=== PATIENT | female | born 1930 | race Caucasian/White ===

== ENCOUNTER 2016-06-17 13:24 | Inpatient (IN) | payer MEDICARE ==
[~2016-06-17] VITALS: Ht 152.4 cm; Wt 44.1 kg
[~2016-06-17 13:24] MED LIST: ACET-171 PO; ALBU18HF INH; ASCO-294 PO; ASPI-973 PO; ATOR40TA69 PO; CALC-78 PO; CAPS42.56 TOP; CHOL10008 PO; CYA1000I IM; IPRA3AMP NEB; LISI-571 PO; METO-272 PO; SPIR25TA PO; TORS20TA PO
[2016-06-17 13:51] VITALS: BP 124/88; PULSE 128; RESP 45; O2SAT 96
--- NOTE | 2016-06-17 13:58 | ED.REPORT ---
HPI-General Illness Date of Service Jun 17, 2016 ED Provider: Thomas Huntley MD An 86 year old female with an extensive medical history including atrial fibrillation, COPD, CVA, carotid artery stenosis, hypertension, MT x2, PVD, CHF , and acute kidney injury presents to the ED via EMS from [place] accompanied by her son with altered level of consciousness onset earlier today. The patient' s son went to pick her up for an appointment and found that she was slumped in her chair with decreased LOC. He was able to take her to her collar fuser, where EMS was called. The patient reports shortness of breath and chills currently. She denies pain or other complaints. Her son reports that she was feeling nauseous just prior to arrival and was having episodes of hematochezia recently. The patient is a poor historian. She was recently discharged from the hospital (06/02/16) after a week stay for new-onset atrial fibrillation and CHF exacerbation with respiratory failure. Nursing Notes Stated Complaint: ALTERED LOC Chief Complaint: General Complaint Nursing Notes Reviewed: Yes Allergies: Coded Allergies: phenobarbital (Verified Allergy, Severe, RASH, 05/26/16) Sulfa (Sulfonamide Antibiotics) (Verified Allergy, Unknown, 05/26/16) cortisone (Verified Allergy, Unknown, 05/26/16) Scheduled Ascorbate Calcium (Vitamin C) 500 Mg Tablet 500 MG PO DAILY Aspirin (Aspirin) 81 Mg Tablet 81 MG PO DAILY Atorvastatin Calcium (Atorvastatin Calcium) 40 Mg Tablet 40 MG PO HS Calcium Carbonate/Vitamin D3 (Calcium 500 + Vit D Caplet) 1 Each Tablet 1 EACH PO DAILY Capsaicin/Menthol (Capzasin Quick Relief Gel) 42.5 Gm Gel.w.appl 1 APPLIC TOP QAM apply to affected areas of arthritis Cholecalciferol (Vitamin D3) (Vitamin D3) 1,000 Unit Tab.chew 1,000 UNIT PO DAILY Cyanocobalamin (Cyanocobalamin Injection) 1,000 Mcg/1 Ml Vial 1,000 MCG IM Monthly Ipratropium/Albuterol Sulfate (Iprat-Albut 0.5-3(2.5) mg/3 mL Inhalant Soln) 3 Ml Ampul.neb 3 ML NEB BID Lisinopril (Lisinopril) 5 Mg Tablet 1.25 MG PO DAILY Metoprolol Succinate ER (Metoprolol Succinate ER) 50 Mg Tab.er.24h 100 MG PO BID Spironolactone (Aldactone) 25 Mg Tablet 12.5 MG PO DAILY Torsemide (Demadex) 20 Mg Tablet 20 MG PO DAILY Scheduled PRN Acetaminophen (Acetaminophen) 500 Mg Tablet 500 MG PO BID PRN PRN For Pain Albuterol Sulfate (Ventolin HFA Inhaler) 200 Puff/18 Gm Inhaler 2 PUFF INH q4- 6h PRN PRN For Wheezing Ipratropium/Albuterol Sulfate (Iprat-Albut 0.5-3(2.5) mg/3 mL Inhalant Soln) 3 Ml Ampul.neb 3 ML NEB Q4H PRN PRN For Shortness of Breath General Time Seen by MD: 13:56 Chief Complaint Altered mental status Hx Obtained From: Patient, Son, EMS Arrived By: Ambulance Sudden in Onset?: No Onset Occurred: Onset unknown Symptom Duration: Since onset Severity: Current: No pain currently Severity: Maximum: No pain Associated with: Denies: Fever Pertinent Negative: Relieved by nothing Context Related History: Reports COPD, Reports Coronary artery disease Recent Healthcare: Recent hospitalization Similar Sx Previous: Yes Past Medical History Past Medical History Notes: COPD, LBBB, Past Medical History Vertigo Prolapse of vaginal vault after hysterectomy LBBB COPD Arthritis shoulders CVA Coronary disease Carotid artery stenosis moderate Hypertension MT x2 Pulmonary fibrosis PVD L subclavia occlusion Stable chronic angina Diastolic CHF with last EF 30-40% 05/2016 Hx. respiratory failure Acute kidney injury Alcohol withdrawal Reports: Atrial fibrillation Past Surgical History Hemmorhoid surgery Reports: , Hysterectomy Smoking History Former Smoker Ambulatory Status Independent Review of Systems Full Review of Systems Constitutional: Reports: Chills, Denies: Fever Respiratory: Reports: Shortness of breath Cardiovascular: Denies: Chest pain GI: Reports: Hematochezia, Nausea, Denies: Abdominal pain Female: Denies: Flank pain Musculoskeletal: Denies: Back pain, Extremity pain Neurologic: Reports: Change LOC Complete sys rev & neg: except as marked. Physical Exam H and L? Vital Signs Vital Signs Date Time Temp Pulse Resp B/P Pulse Ox O2 Delivery O2 Flow Rate FiO2 06/17/16 13:51 35.8 128 45 124/88 96 Nasal Cannula 2 Initial VS: Reviewed Head / Eyes: Atraumatic, Normocephalic ENT: Conjunctiva normal, No scleral icterus Respiratory: Breath sounds normal, Clear to auscultation, No respiratory distress Cardiovascular: Regular rate & rhythm, Heart sounds normal Skin: Warm, Dry Psychiatric: Mood/affect normal, Behavior normal, Normal thought content General/Constitutional: Awake, Alert Abdomen: Soft, No guarding Tenderness/Guarding/Rebound: Positive: Tender diffuse (Mild) Lower Extremity / Pelvis / MS: Inspection NL, No edema Rectum / Perineum: No gross blood No visible stool in rectum Residue on glove is Guaiac positive Interpretation & Diagnostics URINE DIPSTICK 1.000 sp gravity 5 pH trace leukocytes 5 protein Otherwise negative Lab Results Interpretation Result Diagram: 06/17/16 1433 06/17/16 1433 Test 06/17/16 14:18 06/17/16 14:33 Urine Color Yellow (YELLOW) Urine Appearance Hazy (CLEAR,HAZY) Urine pH 5.5 (5.0-8.0) Urine Specific Mobile 1.025 (1.003-1.035) Urine Protein 100mg/dL (NEG,TRACE) Urine Glucose (UA) Negativemg/dL (NEGATIVE) Urine Ketones Negativemg/dL (NEGATIVE) Urine Occult Blood Negative (NEGATIVE) Urine Nitrite Negative (NEGATIVE) Urine Bilirubin Negative (NEGATIVE) Urine Urobilinogen Normalmg/dL (NORMAL) Urine Leukocyte Esterase Trace (NEGATIVE) Urine RBC 0-2/hpf (0-2) Urine WBC 11-50/hpf (0-5) Urine Epithelial Cells Moderate/hpf (NONE-MOD) Urine Crystals None seen (NONE SEEN) Urine Bacteria Few/hpf (NONE-FEW) Urine Hyaline Casts None/lpf (NONE) Urine Granular Casts None seen (NONE SEEN) Urine Waxy Casts None seen (NONE SEEN) Urine Red Blood Cell Casts None seen (NONE SEEN) Urine White Blood Cell Casts None seen (NONE SEEN) Urine Mucus None seen (None Seen) Urine Trichomonas None seen (NONE SEEN) Urine Yeast None (NONE SEEN) Urinalysis Comment None Urine Culture Reflexed Indicated White Blood Count 13.5th/mm3 (3.8-10.1) Red Blood Count 3.68mil/mm3 (3.90-5.20) Hemoglobin 10.6g/dL (12.0-15.6) Hematocrit 33.2% (35.0-46.0) Mean Corpuscular Volume 90.2fL (81-100) Mean Corpuscular Hemoglobin 28.8pg (27.0-35.0) Mean Corpuscular Hemoglobin Concent 31.9% (32.0-37.0) Red Cell Distribution Width 14.1% (12.3-15.4) Platelet Count 478bil/L (150-400) Neutrophils (%) (Auto) 67.9% (40-74) Lymphocytes (%) (Auto) 15.5% (14-46) Monocytes (%) (Auto) 15.8% (4-12) Eosinophils (%) (Auto) 0.1% (0-5) Basophils (%) (Auto) 0.3% (0-3) Prothrombin Time 12.8sec (8.1-12.5) Prothromb Time International Ratio 1.19ratio Sodium Level 134mEq/L (134-144) Potassium Level 5.1mEq/L (3.5-5.2) Chloride Level 91mEq/L (97-108) Carbon Dioxide Level 14mmol/L (18-29) Blood Urea Nitrogen 39mg/dL (8-27) Creatinine 2.00mg/dL (0.57-1.00) Estimat Glomerular Filtration Rate 34mL/min (>59) Glucose Level 123mg/dL (60-99) Lactic Acid Level 7.7mmol/L (0.4-2.0) Calcium Level 9.5mg/dL (8.5-10.1) Magnesium Level 2.5mg/dL (1.6-2.6) Total Bilirubin 0.7mg/dL (0.0-1.2) Aspartate Amino Transf (AST/SGOT) 103U/L (0-50) Alanine Aminotransferase (ALT/SGPT) 92U/L (0-32) Alkaline Phosphatase 88U/L (25-165) Troponin T < 0.010ug/L (0.0-0.011) Pro-B-Type Natriuretic Peptide 43645su/mL (0-738) Total Protein 7.5g/dL (6.4-8.4) Albumin 3.9g/dL (3.4-5.0) Lipase 97U/L (13-60) ECG Interpretation ECG Interpretation: Atrial fibrillation rate 117 Left bundle branch block Time: 15:02 Interpreted by: ED physician X-Ray Chest Interpretation Chest Xray Interpretation: IMPRESSION: No acute cardiopulmonary disease process. Dictated by: Nidhi Medley MD, PhD on 06/17/2016 at 14:54 View: Portable, 1 view Interpretation / Wet Read by: Interpret - Radiologist CT Abd / Pelvis Interpretation IMPRESSION: The study is somewhat limited by absence of oral and intravenous contrast. With this qualification the lungs demonstrate a pattern suggestive of a combination of emphysema and mild congestive heart failure or pulmonary edema from other etiologies such as ARDS. Throughout the abdomen and pelvis no abscess is found. There is no sign of diverticulitis. There is, however, prominent mural thickening of the gallbladder without internal visualized calcifications. Anasarca can produce gallbladder wall thickening but it may be warranted to obtain dedicated gallbladder ultrasound given the concentric mural thickening of the wall at 1.2 cm. Small bilateral pleural effusions, to the degree that access for ultrasound-guided aspiration would not be possible. Dictated by: Mike Barlow M.D. on 06/17/2016 at 17:52 Study type: Abdominal CT no contrast Interpretation / Wet Read by: Interpret - Radiologist Re-Eval/Medical Decision Med Decision/Clinical Course No obvious source for the infection is yet identified. We have covered her with broad-spectrum antibiotics consistent with GI source infection. Currently we are pursuing ultrasound for more definitive evaluation of the gallbladder given the CT findings. Source of Hx: Old records Time of Eval: 17:55 Patient Status: Condition improved Re-Evaluation/Progress Note: Discussed with patient and her son CT and lab results, diagnosis, and plan for admit. Patient and her son agree with plan for care and all questions were addressed. Consultation : Referral / Consult Name: Jessy Cuello MD Consulted With: Hospitalist Call Returned at: 17:50 [employer]: Agrees with eval, Agrees with plan, Accepts admit Note: I informed Dr. Cuello regarding the hematochezia and the CT results. Will order ultrasound based on CT results. Counseled Regarding: Diagnosis, Lab results, Need for admission Discharge & Departure Primary Impression: Sepsis Sepsis type: sepsis due to unspecified organism Qualified Code: A41.9 - Sepsis, unspecified organism Disposition: ADMITTED TO HOSPITAL Discharge Condition All VS Reviewed: Yes Condition: Stable Referrals: Latricia Hickey MD (PCP) Crit Care Except Billable Proc Time Spent: 30-74 minutes Services Performed: Patient management by me, Time spent at bedside, Reviewing test results, Reviewing imaging, Discussing patient care, Documentation in record, Time with fam/surrogate Scribe Attestation Portions of this note were transcribed by Rachell Romero. I, Dr. Huntley, personally performed the history, physical exam, and medical decision-making; I reviewed and confirmed the accuracy of the information in the transcribed note. Signed by: Светлана Mcclellan, 06/17/2016, 17:59 copies to: Latricia Hickey MD, Kirk H MD Jun 17, 2016 13:58 RACHELL ROMERO Jun 17, 2016 14:15
[2016-06-17] MEDS ORDERED: 0.9% Sodium Chloride 1,000 ML IV ONE (14:13)
[2016-06-17 14:32] LABS: APPEARANCE,URINE HAZY (CLEAR,HAZY); COLOR,URINE YELLOW (YELLOW)
[2016-06-17 14:33] LABS: OCCULT BLOOD,URINE NEGATIVE (NEGATIVE); PH,URINE 5.5 (5.0-8.0); UROBILINOGEN,URINE NORMAL (NORMAL)
--- NOTE | 2016-06-17 14:55 | DRSVH ---
PROCEDURE: X-RAY CHEST ONE VIEW, PORTABLE ([id number]) INDICATIONS: altered LOC TECHNIQUE: One view of the chest was acquired. COMPARISON: [facility], CR, XR CHEST 1VW (PORTABLE), 05/27/2016, 15:49. FINDINGS: Surgical changes and devices: None. Lungs and pleura: No pleural effusions or pneumothorax. Chronic interstitial lung changes are stable compared to prior examination. Mediastinum: Mediastinal contours appear normal. Heart size is normal. Bones and chest wall: No suspicious bony lesions. Overlying soft tissues appear unremarkable. IMPRESSION: No acute cardiopulmonary disease process. Dictated by: Nidhi Medley MD, PhD on 06/17/2016 at 14:54 Approved by: Nidhi Medley MD, PhD on 06/17/2016 at 14:54
[2016-06-17 14:58] LABS: BASOPHILS % (AUTO) 0.3 % (0-3); EOSINOPHILS % (AUTO) 0.1 % (0-5); MONOCYTES % (AUTO) 15.8 % (4-12); Mean Corpuscular Hemoglobin 28.8 pg (27.0-35.0); Mean Corpuscular Volume 90.2 fL (81-100); NEUTROPHILS % (AUTO) 67.9 % (40-74); Platelet Count 478 bil/L (150-400)
[2016-06-17 15:04] LABS: INR 1.19 ratio
[2016-06-17 15:24] LABS: Lipase 97 U/L (13-60); Magnesium 2.5 mg/dL (1.6-2.6)
[2016-06-17 15:30] LABS: TROPONIN T < 0.010 ug/L (0.0-0.011)
[2016-06-17] MEDS ORDERED: metroNIDAZOLE Inj 500 MG in IV Premix 1 EACH IV ONE (15:45)
[2016-06-17] MEDS ORDERED: Piperacillin-Tazo 3.375 Gm Inj 3.375 GM in Dextrose 5% Minibag Plus 50 ML IV ONE (15:45)
[2016-06-17] MEDS ORDERED: cefTRIAXone Inj 2,000 MG in IV Premix 1 EACH IV ONE (17:20)
--- NOTE | 2016-06-17 17:54 | DRSVH ---
PROCEDURE: CT ABDOMEN AND PELVIS WITHOUT CONTRAST ([id number]) INDICATIONS: sepsis, unknown source TECHNIQUE: Noncontrast 5 mm thick sections acquired from the diaphragms to the symphysis. 5 mm coronal and sagi ttal reformats were then performed. For radiation dose reduction, the following was used: automated exposure control, adjustment of mA and/or kV according to patient size. COMPARISON: [facility], CT, ABD/PELVIS W/CON (PN), 10/13/2014, 12:37. FINDINGS: Image quality: Excellent. ABDOMEN: Lung bases: Lung bases are abnormal with a combination of what appears to be COPD and pulmonary ariane a with a small pleural effusion bilaterally slightly greater on the left than the right. Heart size is mildly enlarged. Solid organs: Liver and spleen are normal in size. Gallbladder is abnormal with what appears to be concentric mural thickening but no internal calcifications can be seen. Pancreas is normal in contou rs. No adrenal nodules. Kidneys are normal in size, without hydronephrosis or nephrolithiasis. Peritoneum and bowel: Unenhanced bowel loops demonstrate normal wall thickness and caliber. No free fluid or air. Nodes and vessels: No retroperitoneal or mesenteric adenopathy by size criteria. Aorta and inferior vena cava are normal in caliber. Miscellaneous: No ventral hernias. PELVIS: Genitourinary: Bladder wall thickness is normal. Miscellaneous: No inguinal hernias or adenopathy. Prominent diverticulosis without acute diverticul itis Bones: No suspicious bony lesions. No vertebral body compression fractures. IMPRESSION: The study is somewhat limited by absence of oral and intravenous contrast. With this qu alification the lungs demonstrate a pattern suggestive of a combination of emphysema and mild congest kirk heart failure or pulmonary edema from other etiologies such as ARDS. Throughout the abdomen and pelvis no abscess is found. There is no sign of diverticulitis. There is , however, prominent mural thickening of the gallbladder without internal visualized calcifications. Anasarca can produce gallbladder wall thickening but it may be warranted to obtain dedicated gallbla dder ultrasound given the concentric mural thickening of the wall at 1.2 cm. Small bilateral pleural effusions, to the degree that access for ultrasound-guided aspiration would n ot be possible. Dictated by: Mike Barlow M.D. on 06/17/2016 at 17:52 Approved by: Mike Barlow M.D. on 06/17/2016 at 17:52
[2016-06-17] MEDS ORDERED: Ondansetron 2 mg/mL 2 mL Inj IVPUSH PRN (18:05)
[2016-06-17] MEDS ORDERED: Alum-Mag Hydrox-Simeth 30 mL Suspension PO PRN (18:05)
--- NOTE | 2016-06-17 18:17 | NUR ---
Admit nurse: Allergy sticker in place. Pt poor historian, admission completed by medical record and family interview. Med rec not completed at this time, request for med list from [facility] being faxed.
[2016-06-17 20:00] VITALS: BP 112/78; PULSE 117; RESP 32; O2SAT 98
--- NOTE | 2016-06-17 20:10 | DRSVH ---
PROCEDURE: US ABDOMEN, LIMITED ([id number]) INDICATIONS: ABNORMAL GB ON CT-GALLBLADDER ONLY US TECHNIQUE: Real-time focused scanning was performed of the abdomen, with image documentation. COMPARISON: CT scanning from earlier this evening, noncontrast study, but identified what appears to be prominent mural thickening involving the gallbladder in a patient with sepsis syndrome. FINDINGS: The study is limited at clinicians request, and it documents presence of a prominently con centrically thickened edematous gallbladder wall measuring up to 10 mm in thickness, with a tendernes s during sonographic palpation. Note is made of a normal appearing common bile duct diameter of 4.8 mm. IMPRESSION: A confirmation of prominently thickened gallbladder wall measuring up to 10 mm in thickn ess with tenderness during sonographic palpation. Cholecystitis is the presumed cause. No gallstone s are seen within the gallbladder lumen, however. No biliary distention is associated. Surgical con sultation likely is warranted. Dictated by: Mike Barlow M.D. on 06/17/2016 at 20:08 Approved by: Mike Barlow M.D. on 06/17/2016 at 20:08
[2016-06-17 20:51] VITALS: BP 118/80; PULSE 114; RESP 20; O2SAT 97
[2016-06-17 21:16] VITALS: PULSE 94; RESP 32; O2SAT 89
--- NOTE | 2016-06-17 22:00 | NUR ---
Afib Pt remains in Afib but rate increasing to 120-130. made aware, orders received.
[2016-06-17 22:30] VITALS: PULSE 120
--- NOTE | 2016-06-17 22:30 | NUR ---
Admit Pt arrived on unit at 2009. Pt A&Ox3, denies pain. Pt transferred from [facility] to bed using 2 person assist. Family at bedside. VSS, pulse oximeter does not read well, pt has cold, pale hands. Oximeter changed to ear probe, still ineffective. Probe changed to finger after nail croatian removed. Good readings found at 94% on 7L oxymask, but ineffective again after a few minutes. CPOx removed, spot checks to be done. Pt in Afib 112-117. See flowsheet for full assessment.
[2016-06-17] MEDS ORDERED: 0.9% Sodium Chloride 1,000 ML ONE (23:03)
[2016-06-17] MEDS ORDERED: ASCO250T7 PO (23:52)
[2016-06-18] MEDS ORDERED: 0.9% Sodium Chloride 1,000 ML IV SCH (00:05)
[2016-06-18] MEDS ORDERED: Polyethylene Glycol (PEG) 17 Gm Powder PO PRN (00:20)
[2016-06-18] MEDS ORDERED: Albuterol-Ipratropium 3 mL Inhalation Solution NEB PRN (00:20)
[2016-06-18] MEDS ORDERED: Alum-Mag Hydrox-Simeth 30 mL Suspension PO PRN (00:20)
[2016-06-18] MEDS ORDERED: MeTOProlol XL 50 mg ER24 Tablet PO SCH (00:28)
[2016-06-18] MEDS ORDERED: Albuterol 2.5 mg/3 mL Inhalation Solution NEB PRN (00:56)
[2016-06-18 01:00] VITALS: BP 85/49; PULSE 116; RESP 27; O2SAT 97
[2016-06-18] MEDS ORDERED: EPINEPHrine 0.1 mg/mL 10 mL Syringe ONE (01:37)
--- NOTE | 2016-06-18 02:16 | NUR ---
Update Pt up to commode with 1PA at 0100. Pt has good mobility, needing only SBA-1PA. Pt back into bed. RN into room to administer ordered metoprolol dose, pt agreeable. Pt helped to sit up in bed, pt opened mouth to take pills, RN dropped pills into mouth using med cup. Pt suddenly became non responsive, eyes fixed and non reactive. Pt nonreactive to voice, name called, or sternal rub. RN calls in scenery builder. Pills removed from mouth, blood pressure attempted, pt begins agonal breathing, going pulseless. Code Blue called. CPR and assistive respirations started. See code sheet and Dr Ceron's note.
--- NOTE | 2016-06-18 07:38 | PCM.DC.MEX ---
Discharge Summary Date of Service Jun 18, 2016 Dates of Hospitalization Date of Hospital Admission Jun 17, 2016 at 19:15 Date of Expiration: Jun 18, 2016 Time of Expiration: 02:00 Providers: Admitting Physician: Jessy Cuello MD Primary Care Physician: Latricia Hickey MD Attending Physician: Jessy Cuello MD Diagnosis at Time of Acute Cholecystitis Cardiomyopathy/congestive heart failure/atrial fibrillation Elevated Lactic Acid level Procedures XRay, CTs & MRIs CT ABDOMEN AND PELVIS WITHOUT CONTRAST [place] [id number] INDICATIONS: sepsis, unknown source TECHNIQUE: Noncontrast 5 mm thick sections acquired from the diaphragms to the symphysis. 5 mm coronal and sagittal reformats were then performed. For radiation dose reduction, the following was used: automated exposure control, adjustment of mA and/or kV according to patient size. COMPARISON: [facility], CT, ABD/PELVIS W/CON [place] [place] 10/13/2014, 12: 37. FINDINGS: Image quality: Excellent. ABDOMEN: Lung bases: Lung bases are abnormal with a combination of what appears to be COPD and pulmonary edema with a small pleural effusion bilaterally slightly greater on the left than the right. Heart size is mildly enlarged. Solid organs: Liver and spleen are normal in size. Gallbladder is abnormal with what appears to be concentric mural thickening but no internal calcifications can be seen. Pancreas is normal in contours. No adrenal nodules. Kidneys are normal in size, without hydronephrosis or nephrolithiasis. Peritoneum and bowel: Unenhanced bowel loops demonstrate normal wall thickness and caliber. No free fluid or air. Nodes and vessels: No retroperitoneal or mesenteric adenopathy by size criteria. Aorta and inferior vena cava are normal in caliber. Miscellaneous: No ventral hernias. PELVIS: Genitourinary: Bladder wall thickness is normal. Miscellaneous: No inguinal hernias or adenopathy. Prominent diverticulosis without acute diverticulitis Bones: No suspicious bony lesions. No vertebral body compression fractures. IMPRESSION: The study is somewhat limited by absence of oral and intravenous contrast. With this qualification the lungs demonstrate a pattern suggestive of a combination of emphysema and mild congestive heart failure or pulmonary edema from other etiologies such as ARDS. Throughout the abdomen and pelvis no abscess is found. There is no sign of diverticulitis. There is, however, prominent mural thickening of the gallbladder without internal visualized calcifications. Anasarca can produce gallbladder wall thickening but it may be warranted to obtain dedicated gallbladder ultrasound given the concentric mural thickening of the wall at 1.2 cm. Small bilateral pleural effusions, to the degree that access for ultrasound- guided aspiration would not be possible. X-RAY CHEST ONE VIEW, PORTABLE ([id number]) INDICATIONS: altered LOC TECHNIQUE: One view of the chest was acquired. COMPARISON: [facility], CR, XR CHEST 1VW (PORTABLE), 05/27/2016, 15 :49. FINDINGS: Surgical changes and devices: None. Lungs and pleura: No pleural effusions or pneumothorax. Chronic interstitial lung changes are stable compared to prior examination. Mediastinum: Mediastinal contours appear normal. Heart size is normal. Bones and chest wall: No suspicious bony lesions. Overlying soft tissues appear unremarkable. IMPRESSION: No acute cardiopulmonary disease process. Dictated by: Nidhi Medley MD, PhD on 06/17/2016 at 14:54 Other Diagnostics US ABDOMEN, LIMITED ([id number]) INDICATIONS: ABNORMAL GB ON CT-GALLBLADDER ONLY US TECHNIQUE: Real-time focused scanning was performed of the abdomen, with image documentation. COMPARISON: CT scanning from earlier this evening, noncontrast study, but identified what appears to be prominent mural thickening involving the gallbladder in a patient with sepsis syndrome. FINDINGS: The study is limited at clinicians request, and it documents presence of a prominently concentrically thickened edematous gallbladder wall measuring up to 10 mm in thickness, with a tenderness during sonographic palpation. Note is made of a normal appearing common bile duct diameter of 4.8 mm. IMPRESSION: A confirmation of prominently thickened gallbladder wall measuring up to 10 mm in thickness with tenderness during sonographic palpation. Cholecystitis is the presumed cause. No gallstones are seen within the gallbladder lumen, however. No biliary distention is associated. Surgical consultation likely is warranted. Brief History This is an 86 year olf female with illness presenting on the day of admission with lethargy, hypotension and elevated Lactic Acid. Gallbladder US showed cholecystitis without gallstones. She was admitted for IVF and IV Antibiotic treatment. She was DNR. Period just 2 weeks ago she had been admitted for a combination of hypoxemia, atrial fibrillation, CHF and then had been living at an assisted living until today when she became lethargic and hypotensive. Hospital Course Shortly after admission she slumped over in her bed and went pulseless unresponsive. It took several minutes to confirm that she was DO NOT RESUSCITATE and during that time she received several minutes of CPR and 1 dose of epinephrine. This recovered her pulse and her physical rhythm for several minutes. Her wishes had apparently been to avoid all intervention and so once that was confirmed attempts to intubate and continue pressors were stopped. She several minutes later and I was able to visit with the family and discuss the unknowns and the knowns regarding her diagnoses today. Exam Test 06/17/16 14:18 06/17/16 14:33 06/18/16 01:30 Urine Color Yellow (YELLOW) Urine Appearance Hazy (CLEAR,HAZY) Urine pH 5.5 (5.0-8.0) Urine Specific [place] 1.025 (1.003-1.035) Urine Protein 100mg/dL (NEG,TRACE) Urine Glucose (UA) Negativemg/dL (NEGATIVE) Urine Ketones Negativemg/dL (NEGATIVE) Urine Occult Blood Negative (NEGATIVE) Urine Nitrite Negative (NEGATIVE) Urine Bilirubin Negative (NEGATIVE) Urine Urobilinogen Normalmg/dL (NORMAL) Urine Leukocyte Esterase Trace (NEGATIVE) Urine RBC 0-2/hpf (0-2) Urine WBC 11-50/hpf (0-5) Urine Epithelial Cells Moderate/hpf (NONE-MOD) Urine Crystals None seen (NONE SEEN) Urine Bacteria Few/hpf (NONE-FEW) Urine Hyaline Casts None/lpf (NONE) Urine Granular Casts None seen (NONE SEEN) Urine Waxy Casts None seen (NONE SEEN) Urine Red Blood Cell Casts None seen (NONE SEEN) Urine White Blood Cell Casts None seen (NONE SEEN) Urine Mucus None seen (None Seen) Urine Trichomonas None seen (NONE SEEN) Urine Yeast None (NONE SEEN) Urinalysis Comment None Urine Culture Reflexed Indicated White Blood Count 13.5th/mm3 (3.8-10.1) Red Blood Count 3.68mil/mm3 (3.90-5.20) Hemoglobin 10.6g/dL (12.0-15.6) Hematocrit 33.2% (35.0-46.0) Mean Corpuscular Volume 90.2fL (81-100) Mean Corpuscular Hemoglobin 28.8pg (27.0-35.0) Mean Corpuscular Hemoglobin Concent 31.9% (32.0-37.0) Red Cell Distribution Width 14.1% (12.3-15.4) Platelet Count 478bil/L (150-400) Neutrophils (%) (Auto) 67.9% (40-74) Lymphocytes (%) (Auto) 15.5% (14-46) Monocytes (%) (Auto) 15.8% (4-12) Eosinophils (%) (Auto) 0.1% (0-5) Basophils (%) (Auto) 0.3% (0-3) Prothrombin Time 12.8sec (8.1-12.5) Prothromb Time International Ratio 1.19ratio Sodium Level 134mEq/L (134-144) Potassium Level 5.1mEq/L (3.5-5.2) Chloride Level 91mEq/L (97-108) Carbon Dioxide Level 14mmol/L (18-29) Blood Urea Nitrogen 39mg/dL (8-27) Creatinine 2.00mg/dL (0.57-1.00) Estimat Glomerular Filtration Rate 34mL/min (>59) Glucose Level 123mg/dL (60-99) Lactic Acid Level 7.7mmol/L (0.4-2.0) Calcium Level 9.5mg/dL (8.5-10.1) Magnesium Level 2.5mg/dL (1.6-2.6) Total Bilirubin 0.7mg/dL (0.0-1.2) Aspartate Amino Transf (AST/SGOT) 103U/L (0-50) Alanine Aminotransferase (ALT/SGPT) 92U/L (0-32) Alkaline Phosphatase 88U/L (25-165) Troponin T < 0.010ug/L (0.0-0.011) Pro-B-Type Natriuretic Peptide 12833rz/mL (0-738) Total Protein 7.5g/dL (6.4-8.4) Albumin 3.9g/dL (3.4-5.0) Lipase 97U/L (13-60) Hold Purple Top Tube Received (Received) Hold [place] Top Tube Received (Received) Kwan Ceron MD Jun 18, 2016 05:11
[2016-06-18] MEDS ORDERED: Calcium Carbonate (Oyster Shell) 500 mg Tablet PO SCH (08:00)
--- NOTE | 2016-06-18 08:25 | HP ---
[address] [address] HISTORY AND PHYSICAL PATIENT: NORA WHITNEY : 1930 MR#: [id number] ADMIT: 06/17/2016 JOB ID: [id number] HISTORY OF PRESENT ILLNESS: This is an 86-year-old female admitted for progressive weakness and lethargy along with hypotension at the [facility] facility today. She indicates that she has felt this weakness for about two weeks and that apparently goes back to her last hospitalization here about three weeks ago when she was treated for a combination of hypoxemia, CHF and atrial fibrillation with rapid ventricular response. The workup reveals a low blood pressure, and elevated lactic acid and a CT scan suggesting an ultrasound of the gallbladder to be done. The gallbladder ultrasound was done and shows a definitely thickened gallbladder wall consistent with radiographic evidence of cholecystitis, despite there being no gallstones visible. She is definitely more hypoxic than she had been and she was admitted for stabilization and workup with hopeful goals of returning back to her assisted living. She has also had some intermittent bloody stool. ALLERGIES: SULFA, CORTISONE, PHENOBARBITAL. MEDICINES: 1. Albuterol HFA 2 puffs q.4-6 p.r.n. 2. DuoNeb 3 mL neb b.i.d. 3. Atorvastatin 40 mg a day. 4. Lisinopril 1.25 mg a day. 5. Metoprolol succinate ER 100 mg b.i.d. 6. Spironolactone 25 mg half a tablet a day. 7. Tylenol p.r.n. twice a day. 8. Aspirin 81 mg a day. 9. Torsemide 20 mg a day. PAST MEDICAL HISTORY: 1. 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 2. Vertigo. 3. Congestive heart failure, diastolic. 4. Hypertension. 5. Hysterectomy. 6. Pelvic organ prolapse. 7. Urinary incontinence. 8. Angina. 9. Pulmonary fibrosis. 10. Left bundle branch block. 11. Osteoarthritis of the shoulders. 12. CVA with carotid artery stenosis, moderate. 13. Postoperative left subclavian occlusion. SOCIAL HISTORY: No smoking. She lives at the assisted living [facility] in [place]. Her family are scattered around the area. FAMILY HISTORY: No history of kidney stones. REVIEW OF SYSTEMS: No chest pain, nausea, vomiting, fevers, chills, sweats, bleeding edgar blood. Throat looks normal. There is no joint pain. There is no new depression. PHYSICAL EXAMINATION: General: Alert and oriented x3. She gets short of breath with talking, but seems to love talking and definitely has a personality. Vitals: Temperature is 36.5, pulse 116, respirations 27, blood pressure 118/80, O2 sat is 97% 2 L nasal cannula. Pupils are equal, round and reactive to light and accommodation. Extraocular muscles are intact. Sclerae are pink and not icteric. Throat looks normal. No lymph nodes are palpated. Neck: Supraclavicular area, there is no thyromegaly. JVD is less than 6 cm. No carotid bruits are heard. Heart is irregularly irregular without murmur. Lungs clear to auscultation bilaterally. Abdomen is soft. Bowel sounds positive. Nontender. No organomegaly. Extremities: No ankle edema. Neuro: Cranial nerves 2-12 tested intact. The patient is quite hard of hearing and spends most the visit huddled in her bed asking for the covers to be replaced. She looks quite frail. EKG shows atrial fibrillation with left bundle branch block. LABORATORY DATA: White count 30.5, hemoglobin 10.6, platelets 478. INR is 1.19. Sodium is 134, potassium 5.1, chloride 9.1, CO2 is 14. BUN is 39. Creatinine 2.0. Glucose is 123. Calcium is 7.7. AST 103, ALT 92, alk phos 88. BNP 50,379. Lipase 97. Urinalysis: 11-50 WBCs, 0-2 RBCs, negative leukocyte esterase, negative nitrate. ASSESSMENT AND PLAN: 1. Apparent cholecystitis on gallbladder ultrasound. This is not a definite diagnosis but could explain much of this illness. The patient suddenly before a surgical consult or other workup could be done. She was DNR. This was discussed with her son. 2. Progressive hypoxemia with EKG evidence of coronary artery disease. The patient's shortly after the physical examination and interview is a matter of discussion. Her primary condition appears to have been infectious based on the gallbladder ultrasound result and the elevated lactic acid. She was receiving IV fluids at that time. 3. Hyperlipidemia. Continue atorvastatin. 4. Cardiomyopathy/hypertension. Continue metoprolol and lisinopril along with spironolactone. 5. Chronic obstructive pulmonary disease. Continue albuterol and DuoNeb. MTDD
[2016-06-18] MEDS ORDERED: cefTRIAXone Inj 2,000 MG in IV Premix 1 EACH IV SCH (08:30)
[2016-06-18] MEDS ORDERED: Ascorbic Acid 500 mg Tablet PO SCH (08:30)
== END 2016-06-18 01:38 | disposition expired | DRG 296 ==
LOC: SED 13:24 → EDSEX 13:24 → EDBD 13:24 → PCC 19:15
PROVIDERS: ADMIT Urology; ATTEND Urology
PROC: 5A12012 Performance of Cardiac Output, Single, Manual (ICD-10-PCS; principal; 2016-06-18)
DX: I46.9 Cardiac arrest, cause unspecified (principal); A41.9 Sepsis, unspecified organism; I50.32 Chronic diastolic (congestive) heart failure; I42.9 Cardiomyopathy, unspecified; K81.0 Acute cholecystitis; K92.1 Melena; J44.9 Chronic obstructive pulmonary disease, unspecified; I77.1 Stricture of artery; I10 Essential (primary) hypertension; I73.9 Peripheral vascular disease, unspecified; J84.10 Pulmonary fibrosis, unspecified; I48.91 Unspecified atrial fibrillation; I44.7 Left bundle-branch block, unspecified; Z86.73 Personal history of transient ischemic attack (TIA), and cerebral infarction without residual deficits; Z99.81 Dependence on supplemental oxygen; I25.2 Old myocardial infarction; Z79.82 Long term (current) use of aspirin; M19.011 Primary osteoarthritis, right shoulder; M19.012 Primary osteoarthritis, left shoulder